=== PATIENT | male | born 1935 | race Caucasian/White ===

== ENCOUNTER 2023-02-28 19:04 | Emergency (ER) | payer MEDICARE, BC ==
[2023-02-28] MEDS ORDERED: Boostrix 0.5 ML (Tdap) VIAL (>/=7 yrs of age) ONE (21:10)
== END 2023-02-28 21:48 | disposition home or self-care (01) ==
LOC: ERS 19:04
DX: S60.222A Contusion of left hand, initial encounter (principal); M25.511 Pain in right shoulder; E78.5 Hyperlipidemia, unspecified; Z79.899 Other long term (current) drug therapy; W18.30XA Fall on same level, unspecified, initial encounter; Y92.002 Bathroom of unspecified non-institutional (private) residence as the place of occurrence of the external cause
CPT/HCPCS: 90471; 90715

== ENCOUNTER 2023-03-13 14:43 | Observation (INO) | payer MEDICARE, BC ==
[2023-03-13 15:43] LABS: #Basophils 0.1 thou/uL (0.0-0.2); #Eosinphils 0.1 thou/uL (0.0-0.7); #Monocytes 0.7 thou/uL (0.11-0.59); #Neutrophils 7.4 thou/uL (1.40-6.50); %Basophils 0.7 % (0.0-1.0); %Eosinophils 0.7 % (0.0-10.0); %Lymphocytes 14.6 % (21.0-51.0); %Monocytes 6.7 % (0.0-10.0); Hematocrit 38.4 % (42.0-52.0); Hemoglobin 12.7 g/dL (14.0-18.0); Mean Corpuscular HGB CONC 33.1 g/dL (32.0-36.0); Mean Corpuscular Hemoglobin 29.7 pg (27.0-31.0); Mean Corpuscular Volume 89.7 fl (78.0-98.0); Mean Platelet Volume 10.5 fL (7.4-10.4); Platelet Count 293 10x3/uL (130-400); RBC Distribution Width 14.8 % (11.5-14.5); Red Blood Cell (RBC) Count 4.28 mill/uL (4.70-6.10); White Blood Cell (WBC) Count 9.7 10x3/uL (4.8-10.8)
[2023-03-13 15:54] LABS: INR-International Normal Ratio 1.1; PTT 28.7 sec (22.9-36.1); Prothrombin Time 14.3 sec (12.0-14.7)
[2023-03-13 16:01] LABS: Bacteria/HPF None Seen HPF (None Seen); Bilirubin Negative (Negative); Blood, Urine Negative (Negative); CAUTI Indications for Culture Alt mental st,lethar; Clarity Clear (Clear); Glucose, Urine (Dipstick) Greater than 1000 mg/dL (Negative); Ketone, Urine Negative (Negative); Leukocyte Negative Leu/uL (Negative); Nitrite Negative (Negative); Protein, Urine (Dipstick) Negative (Neg-Trace); RBC/HPF 0-3 HPF (0-3); Specific Gravity, Urine 1.024 (1.002-1.036); Squamous Epithelial None Seen HPF (0-3); Urobilinogen Normal mg/dL (Less than 2); WBC/HPF 0-3 HPF (0-3); pH, Urine 5.5 (5.0-9.0)
[2023-03-13 16:05] LABS: ALT (SGPT) 11 U/L (8-55); AST (SGOT) 16 U/L (5-34); Albumin 4.3 g/dL (3.4-4.8); Alkaline Phosphatase 123 U/L (40-110); Anion Gap 12 mmol/L (10-20); BUN (Urea Nitrogen) 16 mg/dL (8.4-25.7); Bilirubin, Total 0.2 mg/dL (0.2-1.2); Calc. Creatinine Clearance 0 mL/min (70-130); Calcium 9.2 mg/dL (7.8-10.44); Carbon Dioxide 24 mmol/L (23-31); Chloride 105 mmol/L (98-107); Estimated GFR 77; Globulin 2.5 g/dL (2.4-3.5); Glucose 170 mg/dL (83-110); Potassium 4.2 mmol/L (3.5-5.1); Protein, Total 6.8 g/dL (5.8-8.1); Sodium 137 mmol/L (136-145)
[2023-03-13 16:09] LABS: Troponin I 0.049 ng/mL (< 0.028)
[2023-03-13 16:09] LABS: Urine Culture Reflex No No
[2023-03-13] MEDS ORDERED: Acetaminophen 325 MG TAB PO PRN (17:03)
[2023-03-13] MEDS ORDERED: Ondansetron PF 4 MG/2 ML Vial IVP PRN (17:03)
[2023-03-13] MEDS ORDERED: Senokot S 8.6-50 MG TAB PO PRN (17:03)
[2023-03-13] MEDS ORDERED: Calcium Carbonate 500 MG ChewTAB PO PRN (17:03)
[2023-03-13] MEDS ORDERED: hydrALAZINE 20 MG/ML VIAL SLOW IVP PRN (17:52)
[2023-03-13] MEDS ORDERED: Glucagon 1 MG/ML KIT IM PRN (17:52)
[2023-03-13] MEDS ORDERED: Dextrose 50% Abboject 50 ML SYRINGE SLOW IVP PRN (17:52)
[2023-03-13] MEDS ORDERED: Dextrose 5% in Water 1,000 ML IV PRN (17:52)
[2023-03-13] MEDS ORDERED: HumaLOG 300 UNITS/3 ML VIAL SC PRN ×2 (17:52)
[2023-03-13 21:01] LABS: Troponin I 0.046 ng/mL (< 0.028)
[2023-03-13 21:59] VITALS: BMI 23.6
[2023-03-14 00:48] LABS: Troponin I 0.047 ng/mL (< 0.028)
[2023-03-14 04:03] LABS: #Basophils 0.1 thou/uL (0.0-0.2); #Eosinphils 0.1 thou/uL (0.0-0.7); #Monocytes 0.8 thou/uL (0.11-0.59); #Neutrophils 6.4 thou/uL (1.40-6.50); %Basophils 0.9 % (0.0-1.0); %Eosinophils 1.1 % (0.0-10.0); %Lymphocytes 18.6 % (21.0-51.0); %Monocytes 8.4 % (0.0-10.0); %Neutrophils 70.7 % (42.0-75.0); Hematocrit 38.3 % (42.0-52.0); Hemoglobin 12.6 g/dL (14.0-18.0); Mean Corpuscular HGB CONC 32.9 g/dL (32.0-36.0); Mean Corpuscular Hemoglobin 29.1 pg (27.0-31.0); Mean Corpuscular Volume 88.5 fl (78.0-98.0); Mean Platelet Volume 10.5 fL (7.4-10.4); Platelet Count 263 10x3/uL (130-400); RBC Distribution Width 14.7 % (11.5-14.5); Red Blood Cell (RBC) Count 4.33 mill/uL (4.70-6.10)
[2023-03-14 04:38] LABS: ALT (SGPT) 12 U/L (8-55); AST (SGOT) 15 U/L (5-34); Albumin 3.8 g/dL (3.4-4.8); Alkaline Phosphatase 117 U/L (40-110); Anion Gap 14 mmol/L (10-20); BUN (Urea Nitrogen) 14 mg/dL (8.4-25.7); Bilirubin, Total 0.5 mg/dL (0.2-1.2); Calc. Creatinine Clearance 60 mL/min (70-130); Calcium 8.7 mg/dL (7.8-10.44); Carbon Dioxide 23 mmol/L (23-31); Cardiac Risk 3.4 (Less than 4.5); Chloride 105 mmol/L (98-107); Cholesterol 156 mg/dl (< 200 Desired); Estimated GFR 73; Globulin 2.6 g/dL (2.4-3.5); Glucose 179 mg/dL (83-110); HDL Cholesterol 46 mg/dL (>60 Neg Risk); LDL Cholesterol, Calculated 81 mg/dL; Magnesium 1.9 mg/dL (1.6-2.6); Potassium 3.8 mmol/L (3.5-5.1); Protein, Total 6.4 g/dL (5.8-8.1); Sodium 138 mmol/L (136-145); Triglycerides 147 mg/dL (Less than 150)
[2023-03-14] MEDS: Sodium Chloride 0.9% 1,000 ML IV SCH ×2 (15:20→22:03)
[2023-03-15 08:07] VITALS: TEMP 98
[2023-03-15] MEDS ORDERED: Lisinopril 2.5 MG TAB PO SCH (09:00)
[2023-03-15] MEDS ORDERED: Amiodarone 200 MG TAB PO SCH (09:00)
[2023-03-15] MEDS ORDERED: Empagliflozin 10 MG TAB PO SCH (09:00)
[2023-03-15 13:39] VITALS: BP 124/68
== END 2023-03-15 13:40 | disposition home or self-care (01) ==
LOC: ERS 14:43 → SUATTDRO 14:43 → 2NO 17:03
PROVIDERS: ADMIT Internal Medicine; ATTEND Internal Medicine
DX: S43.51XA Sprain of right acromioclavicular joint, initial encounter (principal); G11.9 Hereditary ataxia, unspecified; R77.8 Other specified abnormalities of plasma proteins; D64.9 Anemia, unspecified; E11.9 Type 2 diabetes mellitus without complications; I10 Essential (primary) hypertension; Z88.0 Allergy status to penicillin; Z88.8 Allergy status to other drugs, medicaments and biological substances; X58.XXXA Exposure to other specified factors, initial encounter
CPT/HCPCS: 70450; 71045; 73000; 73030; 80053 ×2; 80061; 81001; 83036; 83735 ×2; 84484 ×3; 85025 ×2; 85610; 85730; 93005; 93306; 96372 ×2; 97530 ×2; 97542; 99285; G0378 ×4; 36415; J1650; J7050

== ENCOUNTER 2025-05-12 12:53 | Emergency (ER) | payer MEDICARE | END 2025-05-12 13:01 | LOC: ERS 12:53 | DX: I46.9 Cardiac arrest, cause unspecified (principal); I10 Essential (primary) hypertension; E11.9 Type 2 diabetes mellitus without complications; Z79.899 Other long term (current) drug therapy; Z79.84 Long term (current) use of oral hypoglycemic drugs | CPT/HCPCS: 92950 ==